=== PATIENT | male | born 1965 | race African-American/Black ===

== ENCOUNTER 2016-10-15 14:34 | Emergency (ER) | payer MEDICARE, OTHER ==
--- NOTE | ~2016-10-15 | CR230 ---
[facility] A Service of [facility] [place] RADIOLOGY TEXT RESULTS PATIENT: BERNIE FINNEGAN LOCATION: [facility] : 63 UNIT #: [id number] AGE: [address]: Ellyn Gregorio APRN SEX: M ORDER DR: [id number] [facility] [address] [place], [place] [address] [id number] E MR#: [id number] Acc #: [id number] NAME: BERNIE FINNEGAN : 1965 SEX: M STUDY DATE/TIME: 10/15/2016 14:08 UNIT: [facility] ROOM: STUDY DESCRIPTION: CR Shoulder Min 2 View Rt Attending Physician: Ellyn Gregorio A.P.R.N. Ordering Physician: Thomas Gutierrez M.D. Primary Care Physician: Rey Hampton M.D. MEDICAL IMAGING REPORT This report is preliminary unless electronic signature is present EXAM 3 views right shoulder. DATE OF EXAM 10/15/2016 at 14:08. HISTORY Right shoulder and scapular pain since yesterday after falling down stairs. COMPARISON 2 views right scapula 10/15/2016. PA and lateral chest radiograph 03/21/2016. FINDINGS No acute appearing right shoulder fracture or dislocation is identified. Coarse calcification is seen adjacent to the greater tuberosity of the humerus measuring up to 2.1 x 0.6 cm in aggregate. Similar findings can be seen on the chest radiograph from 03/21/2016, and may represent changes of chronic calcific tendinosis. No acromioclavicular or coracoclavicular separation. Glenohumeral joint space appears preserved. Imaged right ribs appear intact. IMPRESSION No acute fracture dislocation of the right shoulder. 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 Dictated by... Ashtyn Champagne M.D. THIS IS AN ELECTRONICALLY VERIFIED REPORT [facility] A Service of [facility] [place] RADIOLOGY TEXT RESULTS PATIENT: BERNIE FINNEGAN [id number] 63 UNIT #: [id number] AGE: [address]: Ellyn Gregorio APRN SEX: M ORDER DR: Ashtyn Champagne M.D. at 10/17/2016 7:02 PM KIM/sydnie TD: 10/15/2016 20:16 JOB #: [id number] MEDICAL IMAGING REPORT COPY
--- NOTE | ~2016-10-15 | CR221 ---
[facility] A Service of [facility] RADIOLOGY TEXT RESULTS PATIENT: BERNIE FINNEGAN LOCATION: [facility] : 63 UNIT #: [id number] AGE: [address]: Ellyn Gregorio APRN SEX: M ORDER DR: [id number] [facility] [address] [place], [place] [address] [id number] E MR#: [id number] Acc #: [id number] NAME: BERNIE FINNEGAN : 1965 SEX: M STUDY DATE/TIME: 10/15/2016 14:12 UNIT: [facility] ROOM: STUDY DESCRIPTION: CR Scapula Comp Rt Attending Physician: Ellyn Gregorio A.P.R.N. Ordering Physician: [facility] Primary Care Physician: Rey Hampton M.D. MEDICAL IMAGING REPORT This report is preliminary unless electronic signature is present EXAM Scapula right HISTORY Pain, fell down stairs onto shoulder yesterday. FINDINGS 2 views of the right scapula reviewed. There is a separate study of the right shoulder. The patient has a Hill-Sachs deformity at the posterior-superior humeral head with multiple small ossific fragments adjacent to it. They are well corticated and could be related to calcific tendinitis or could be related to the likely chronic Hill-Sachs deformity. See the separate shoulder dictation. There does not appear to be a scapular fracture. IMPRESSION 1. No evidence for right side scapular fracture. 2. Findings consistent with what is likely a chronic Hill-Sachs deformity right humeral head with some likely chronic calcifications, possibly due to calcific tendinitis, possibly related to the Hill-Sachs injury. Dictated by... Christianne Abrams M.D. THIS IS AN ELECTRONICALLY VERIFIED REPORT Christianne Abrams M.D. at 10/16/2016 6:08 AM SAC/pcl TD: 10/15/2016 19:45 JOB #: [id number] [facility] A Service of [facility] RADIOLOGY TEXT RESULTS PATIENT: BERNIE FINNEGAN LOCATION: [facility] #: [id number] : 63 UNIT #: [id number] AGE: [address]: Ellyn Gregorio APRN SEX: M ORDER DR: MEDICAL IMAGING REPORT COPY
[~2016-10-15 14:34] MED LIST: ORUDIS75 M1 DOB
== END 2016-10-15 15:09 | disposition home or self-care (01) ==
LOC: CED 14:34
DX: S46.911A Strain of unspecified muscle, fascia and tendon at shoulder and upper arm level, right arm, initial encounter (principal); I10 Essential (primary) hypertension; E11.9 Type 2 diabetes mellitus without complications; F17.210 Nicotine dependence, cigarettes, uncomplicated; W18.30XA Fall on same level, unspecified, initial encounter; Y92.009 Unspecified place in unspecified non-institutional (private) residence as the place of occurrence of the external cause
CPT/HCPCS: 73010; 73030; 99284